=== PATIENT | female | born 1980 | race Asian ===

== ENCOUNTER 2019-01-09 16:13 | Inpatient (IN) ==
[2019-01-09] MEDS ORDERED: OXYTOCIN 30 UNITS/500 ML BAG IV PRN ×2 (17:13→18:04)
[2019-01-09] MEDS ORDERED: LACTATED RINGER'S 1,000 ML IV PRN (17:13)
--- NOTE | 2019-01-09 17:21 | History & Physical Report ---
Date of Service January 09, 2019 Assessment & Plan (1) 39 weeks gestation of : Spontaneous labor, admit to L&D. Labs to be drawn after delivery. IV fluids. EFM/toco. Anticipate . History of Present Illness Chief Complaint: Spontaneous Labor Primary Care Provider: JETT PCP 38yo @ 39 12/21 presents with spontaneous labor, head on perineum. complicated by transfer of care from [place] at 35 weeks. Ready to push on arrival to L&D. Allergies Allergy/AdvReac Type Severity Reaction Status Date / Time No Known Allergies Allergy Unverified 01/09/19 17:06 Home Medications Home Medications Medication Instructions Recorded Confirmed Type ferrous sulfate [iron] 325 mg PO DAILY 01/09/19 01/09/19 History vit no.[id number] 1 tab PO DAILY 01/09/19 01/09/19 History [ Vitamin] Patient History Medical History No known health problems Surgical History No history of previous surgery Review of Systems All systems reviewed & are unremarkable except as noted in HPI & below Physical Exam Physical Exam: Gen: AAOx3, acute pain SVE: completely dilated, head on perineum Ext: no edema For further Physical exam see scanned H&P FHT Cat 1 [place] Q 2 Results & Data Vital Signs (Past 12 Hours) Vital Signs Pulse Resp BP 01/09/19 17:14 66 101/50 L 01/09/19 16:59 96 H 100/47 L 01/09/19 16:57 96 H 106/53 L 01/09/19 16:50 22 01/09/19 16:45 103 H 113/57 L 01/09/19 16:22 81 103/64
--- NOTE | 2019-01-09 17:26 | Procedure Note ---
Vaginal Delivery Summary Date of Service January 09, 2019 Vaginal Delivery Summary Vaginal Delivery Summary: Pre-delivery diagnoses: 38yo @ 39 6/, spontaneous labor, late transfer of care from [place] Post-delivery diagnoses: Same Procedure: Spontaneous vaginal delivery Surgeon: Malena Christine DO Complications: none Findings: Viable male . Apgars: 8/9 . Weight pending, please see nursery records Estimated blood loss: 300ml Description of delivery: The patient arrived to L&D [facility] without anesthesia. She then began to push. She spontaneously vaginally delivered a viable male from the cephalic presentation. The head delivered in DANIEL position. The anterior shoulder delivered, followed by the posterior shoulder, followed by the body. No nuchal cord. The baby was placed on mother's abdomen and a spontaneous cry was heard. Delayed cord clamping was employed, and the cord was doubly clamped and cut. Cord blood was obtained. The placenta was delivered spontaneously intact with a 3-vessel cord. The uterus and vagina were swept of clots and debris. IV pitocin was given. The uterus became firm. The cervix, vagina, and perineum were inspected and no lacerations were noted. Excellent hemostasis was observed. The mother and baby are recovering in stable and good condition in the room. Sponge and instrument counts were correct x 2. Malena Christine [place] [facility] [place]
[2019-01-09 17:41] LABS: Hematocrit (blood only) 33.4 % (37-47); Hemoglobin 11.3 g/dL (12.0-16.0); Mean Corpuscular Volume 94.6 fL (80-100); Platelet Count 181 K/uL (130-400); RDW Coefficient of Variation 13.2 % (11.5-14.5); RDW Standard Deviation 45.7 fL (36.4-46.3); Red Blood Count 3.53 M/uL (4.2-5.4); White Blood Count 14.48 K/uL (4.8-10.8)
[2019-01-09 17:50] LABS: Mean Corpuscular Hgb Conc 33.8 g/dL (32-36)
[2019-01-09] MEDS ORDERED: ACETAMINOPHEN 325 MG TAB PO PRN (18:04)
[2019-01-09] MEDS ORDERED: OXYCODONE/ACETAMINOPHEN 5mg/325mg TAB PO PRN (18:04)
[2019-01-09] MEDS ORDERED: HYDROCORTISONE ACETATE 25 MG SUPP PR PRN (18:04)
[2019-01-09] MEDS ORDERED: BENZOCAINE 20% AER SPR 82.5 GM CAN EXT PRN (18:04)
[2019-01-09] MEDS ORDERED: IBUPROFEN 600 MG TAB PO PRN (18:04)
[2019-01-09] MEDS ORDERED: SUPERCREAM 0.870% 15 GM JAR EXT PRN (18:04)
[2019-01-09] MEDS ORDERED: DIPHTHERIA/TETANUS/PERTUSSIS 0.5 ML SYR/VIAL IM ONE (18:04)
[2019-01-09] MEDS: DOCUSATE SODIUM 100 MG CAP PO SCH (21:11)
[2019-01-10 06:39] LABS: Hemoglobin 9.9 g/dL (12.0-16.0); Mean Corpuscular Hgb Conc 34.1 g/dL (32-36); Mean Corpuscular Volume 93.9 fL (80-100); Mean Platelet Volume 10.9 fL (7.4-10.4); Platelet Count 188 K/uL (130-400); RDW Coefficient of Variation 13.2 % (11.5-14.5); RDW Standard Deviation 45.1 fL (36.4-46.3); Red Blood Count 3.09 M/uL (4.2-5.4); White Blood Count 11.33 K/uL (4.8-10.8)
--- NOTE | 2019-01-10 06:51 | Obstetrical Progress Note ---
Date of Service <Alex Lincoln Kade - Last Filed: 01/10/19 06:51> January 10, 2019 Assessment & Plan <Alex Braun - Last Filed: 01/10/19 06:51> (1) (spontaneous vaginal delivery): -vital signs reviewed and WNL -last Hgb 11.3 -Blood type: O+, GBS-, Rubella Immune -pt doing well clinically -encourage ambulation, monitor and control pain with motrin tylenol, cont regular diet, monitor lochia -cont encourage breast feeding -anticipate d/c tomorrow Subjective <Alex HamzahAida Braun - Last Filed: 01/10/19 06:51> 38 y/o PPD1 found in bed this morning in NAD. Reports no acute overnight events. Pt states that she has no pain other than appropriate soreness. Tolerating PO intake without N/V. Able to ambulate without issue. She is breast feeding without issue. No issues with voiding, no BM yet but passing gas. No other acute concerns or complaints. Review of Systems All systems reviewed & are unremarkable except as noted in HPI & below Physical Exam <Alxe Braun - Last Filed: 01/10/19 06:51> Constitutional WD/WN, vitals as above Respiratory normal respiratory effort, lungs clear to auscultation Cardiovascular RRR, no murmur, no edema Gastrointestinal (Abdomen) mild abd tenderness Fundus one below U, please correlate with attending findings Skin no rashes, warm and dry Psychiatric A+Ox3, euthymic affect Lymphatic no LE swelling, no calf tenderness Results & Data <Alex Lincoln Kade - Last Filed: 01/10/19 06:51> Vital Signs (Past 12 Hours) Vital Signs Temp Pulse Pulse Resp BP BP Pulse Ox 01/10/19 04:30 36.6 C 69 15 90/47 L 98 01/09/19 23:25 36.2 C L 64 17 93/56 L 98 01/09/19 20:45 36.9 C 74 16 93/54 L 97 01/09/19 19:40 36.8 C 75 20 91/53 L 01/09/19 18:59 73 92/50 L Laboratory Results Laboratory Results - last 24 hr 01/09/19 01/10/19 17:22 06:05 WBC 14.48 H 11.33 H RBC 3.53 L 3.09 L Hgb 11.3 L 9.9 L Hct 33.4 L 29.0 L MCV 94.6 93.9 MCH 32.0 32.0 MCHC 33.8 34.1 RDW Std Deviation 45.7 45.1 RDW Coeff of [place] 13.2 13.2 Plt Count 181 188 MPV 11.0 H 10.9 H Medications Administered Current Inpatient Medications Acetaminophen (Tylenol) 650 mg PO Q6H PRN PRN Reason: Pain/MCMILLAN/Fever Stop: 02/08/19 18:03 Benzocaine (Dermoplast Pain Relieving [place]) 1 appln EXT PRN PRN PRN Reason: Perineal Discomfort Stop: 02/08/19 18:03 Bisacodyl (Dulcolax) 5 mg PO 1999 [facility] Stop: 01/10/19 20:01 Bisacodyl (Dulcolax) 10 mg VT DAILY PRN PRN Reason: No BM on 2nd post- day Stop: 02/10/19 00:00 Cocaine HCl (Supercream 0.870%) 1 gm EXT BID PRN PRN Reason: Hemorrhoidal Inflammation Stop: 01/23/19 18:03 Docusate Sodium (Colace) 100 mg PO DAILY@ [facility] Stop: 02/08/19 20:59 Last Admin: 01/09/19 21:11 Dose: Not Given Documented by: Hydrocortisone (Anusol Hc) 25 mg VT BID PRN PRN Reason: Hemorrhoidal Inflammation Stop: 02/08/19 18:03 Oxytocin (Pitocin) 30 units in 500 mls @ 333.333 mls/hr IV .Q1H30M PRN; Protocol PRN Reason: Bleeding Control Stop: 02/08/19 18:03 Ibuprofen (Motrin) 600 mg PO Q4H PRN PRN Reason: Pain/MCMILLAN/Cramping/Fever Stop: 02/08/19 18:03 Oxycodone/Acetaminophen (Percocet 5mg/325mg) 1 tab PO Q4H PRN PRN Reason: Pain not relieved by... Stop: 01/23/19 18:03 Prenat Multivit/Dry [place]c Racker/Iron/Folic Ac ( Vitamin) 1 tab PO DAILY@08 [facility] Stop: 02/09/19 07:59 <Malena Christine DO - Last Filed: 01/10/19 07:40> Co-Signing Physician Notes Resident Physician Supervision Note: I interviewed and examined the patient. Discussed with Dr. Braun and agree with findings and plan as documented in the note. Any exceptions or clarifications are listed here: PPD#1 doing well. DC home tomorrow. Documented By: Malena Christine DO Resident Activity Tracking <Alex Braun, - Last Filed: 01/10/19 06:51> Resident Involvement: Resident Care Provided Care Provided: OB Delivery
[2019-01-10] MEDS: DOCUSATE SODIUM 100 MG CAP PO SCH ×2 (08:23→20:10)
[2019-01-10] MEDS: PRENATAL VITAMIN 1 TAB PO SCH (08:23)
[2019-01-10] MEDS ORDERED: BISACODYL 5 MG TABEC PO SCH (20:00)
[2019-01-11] MEDS ORDERED: BISACODYL 10 MG SUPP PR PRN
--- NOTE | 2019-01-11 07:12 | Obstetrical Progress Note ---
Date of Service <Alex Lincoln Braun - Last Filed: 01/11/19 07:12> January 11, 2019 Assessment & Plan <Alex CAida Braun - Last Filed: 01/11/19 07:12> (1) (spontaneous vaginal delivery): -vital signs reviewed and WNL -last Hgb 9.9 --> ferrous sulfate -Blood type: O+, GBS-, Rubella Immune -pt doing well clinically -encourage ambulation, monitor and control pain with motrin tylenol, cont regular diet, monitor lochia -cont encourage breast feeding -plan for d/c today Subjective <Alex CAida Kade - Last Filed: 01/11/19 07:12> 38 y/o PPD2 found in bed this morning in NAD. Reports no acute overnight events. Pt states that she has no pain other than appropriate soreness. Tolerating PO intake without N/V. Able to ambulate without issue. She is breast feeding without issue. No issues with voiding, no BM yet but passing gas. No other acute concerns or complaints. Pt ok with plan for d/c today. Review of Systems All systems reviewed & are unremarkable except as noted in HPI & below Physical Exam <Alexkarri Braun DO - Last Filed: 01/11/19 07:12> Constitutional WD/WN, vitals as above Respiratory normal respiratory effort, lungs clear to auscultation Cardiovascular RRR, no murmur, no edema Gastrointestinal (Abdomen) mild abd tenderness Fundus one below U, correlate with attending findings Skin no rashes, warm and dry Psychiatric A+Ox3, euthymic affect Lymphatic no LE swelling, no calf tenderness Results & Data <Alexmagy Braun - Last Filed: 01/11/19 07:12> Vital Signs (Past 12 Hours) Vital Signs Temp Pulse Resp BP Pulse Ox 01/10/19 23:20 36.6 C 78 16 93/57 L 97 01/10/19 19:15 36.7 C 80 16 95/59 L 98 Laboratory Results Laboratory Results - last 24 hr 01/11/19 06:36 Hgb Pending Hct Pending Medications Administered Current Inpatient Medications Acetaminophen (Tylenol) 650 mg PO Q6H PRN PRN Reason: Pain/MCMILLAN/Fever Stop: 02/08/19 18:03 Benzocaine (Dermoplast Pain Relieving [place]) 1 appln EXT PRN PRN PRN Reason: Perineal Discomfort Stop: 02/08/19 18:03 Bisacodyl (Dulcolax) 10 mg IN DAILY PRN PRN Reason: No BM on 2nd post- day Stop: 02/10/19 00:00 Cocaine HCl (Supercream 0.870%) 1 gm EXT BID PRN PRN Reason: Hemorrhoidal Inflammation Stop: 01/23/19 18:03 Docusate Sodium (Colace) 100 mg PO DAILY@08,21 [facility] Stop: 02/08/19 20:59 Last Admin: 01/10/19 20:10 Dose: 100 mg Documented by: Ferrous Sulfate (Feosol) 325 mg PO QAM [facility] Stop: 02/10/19 08:59 Hydrocortisone (Anusol Hc) 25 mg IN BID PRN PRN Reason: Hemorrhoidal Inflammation Stop: 02/08/19 18:03 Oxytocin (Pitocin) 30 units in 500 mls @ 333.333 mls/hr IV .Q1H30M PRN; Protocol PRN Reason: Bleeding Control Stop: 02/08/19 18:03 Ibuprofen (Motrin) 600 mg PO Q4H PRN PRN Reason: Pain/MCMILLAN/Cramping/Fever Stop: 02/08/19 18:03 Oxycodone/Acetaminophen (Percocet 5mg/325mg) 1 tab PO Q4H PRN PRN Reason: Pain not relieved by... Stop: 01/23/19 18:03 Prenat Multivit/[place]/Iron/Folic Ac ( Vitamin) 1 tab PO DAILY@08 [facility] Stop: 02/09/19 07:59 Last Admin: 01/10/19 08:23 Dose: 1 tab Documented by: <Yulissa Nj MD, FACOG - Last Filed: 01/11/19 07:51> Co-Signing Physician Notes Resident Physician Supervision Note: I interviewed and examined the patient. Discussed with Dr. Cris Braun and agree with findings and plan as documented in the note. Any exceptions or clarifications are listed here: [None] Documented By: Yulissa Nj MD, FACOG Resident Activity Tracking <Alex Braun DO - Last Filed: 01/11/19 07:12> Resident Involvement: Resident Care Provided Care Provided: OB Delivery
[2019-01-11 07:14] LABS: Hematocrit (blood only) 28.7 % (37-47)
[2019-01-11] MEDS: PRENATAL VITAMIN 1 TAB PO SCH (08:35)
[2019-01-11] MEDS: DOCUSATE SODIUM 100 MG CAP PO SCH (08:35)
[2019-01-11] MEDS ORDERED: FERROUS SULFATE 325 MG TAB PO SCH (09:00)
== END 2019-01-11 18:12 | disposition home or self-care (01) | DRG 807 ==
LOC: OPB 16:13 → 4S1 16:14 → 4S2 19:45